=== PATIENT | male | born 1995 | race Caucasian/White ===

== ENCOUNTER 2020-09-12 12:12 | Emergency (ER) | payer SELFPAY | END 2020-09-12 12:38 | disposition left against medical advice (07) | LOC: ER 12:14 | DX: Z75.3 Unavailability and inaccessibility of health-care facilities (principal) ==

== ENCOUNTER 2020-09-15 04:41 | Emergency (ER) | payer SELFPAY ==
[~2020-09-15] VITALS: Ht 167.6 cm; Wt 58.5 kg
--- NOTE | 2020-09-15 05:00 | NUR ---
Dr. Reyes at bedside for MSE.
[2020-09-15] MEDS ORDERED: SILVER SULFADIAZINE 1% CREAM 25 GM TUBE TP ONE (05:11)
[2020-09-15] MEDS ORDERED: SULFAMETH/TRIMETH 800/160 MG TABLET ONE (05:12)
[2020-09-15] MEDS ORDERED: SILVER SULFADIAZINE 1% CREAM 50 GM TP ONE (05:15)
[2020-09-15] MEDS ORDERED: SULFAMETH/TRIMETH 800/160 MG TABLET PO ONE (05:15)
--- NOTE | 2020-09-15 05:28 | NUR ---
Patient given written and verbal discharge instructions. Patient verbalizes understanding of instructions. Patient is ambulatory with steady gait. Refuses offer of [facility] placement. Patient given list of available shelters in surrounding area. Patient provided with sandwich and juice per patient request, VSS, no acute signs of distress, all belongings taken, AxOx3, patient refused all other services available at this time and will arrange own transportation.
[2020-09-15 05:30] VITALS: BP 132/89
== END 2020-09-15 05:30 | disposition home or self-care (01) ==
LOC: ER 04:41
PROC: 2W2SX4Z Dressing of Right Foot using Bandage (ICD-10-PCS; principal; 2020-09-15)
PROC: 2W2TX4Z Dressing of Left Foot using Bandage (ICD-10-PCS; principal; 2020-09-15)
DX: T25.222A Burn of second degree of left foot, initial encounter (principal); T25.221A Burn of second degree of right foot, initial encounter; T31.0 Burns involving less than 10% of body surface; X08.8XXA Exposure to other specified smoke, fire and flames, initial encounter; Y92.89 Other specified places as the place of occurrence of the external cause; Z59.0 Homelessness; R03.0 Elevated blood-pressure reading, without diagnosis of hypertension
CPT/HCPCS: 16020; A4217; A4663

== ENCOUNTER 2020-10-08 11:35 | Emergency (ER) | payer SELFPAY ==
[~2020-10-08] VITALS: Ht 167.6 cm; Wt 63.0 kg
[2020-10-08] MEDS ORDERED: CEPH500T PO (11:56)
[2020-10-08] MEDS ORDERED: TOLN133P TP (11:56)
--- NOTE | 2020-10-08 12:25 | NUR ---
Patient given written and verbal discharge instructions. Patient verbalizes understanding of instructions. Patient is ambulatory with steady gait. Refuses offer of [facility] placement. Patient given list of available shelters in surrounding area.pt walks in steady gait, a pair of shoes and food provided per pt request.
== END 2020-10-08 12:29 | disposition home or self-care (01) ==
LOC: ER 11:36
DX: L03.116 Cellulitis of left lower limb (principal); L03.115 Cellulitis of right lower limb; T25.022D Burn of unspecified degree of left foot, subsequent encounter; T25.021D Burn of unspecified degree of right foot, subsequent encounter; T79.8XXD Other early complications of trauma, subsequent encounter; B35.6 Tinea cruris; Z59.0 Homelessness
CPT/HCPCS: A4663